=== PATIENT | male | born 1945 | race Two or more races ===

== ENCOUNTER 2016-12-08 16:57 | Observation (INO) | payer MEDICARE, OTHER ==
[2016-12-08] MEDS ORDERED: MORPHINE SULFATE 4 MG/ML SYRINGE IV STA (17:22)
[2016-12-08] MEDS ORDERED: ASPIRIN 81 MG PO STA (17:22)
[2016-12-08] MEDS ORDERED: NITROGLYCERIN OINT 1 INCH/GM PACKET TOPICAL STA (17:22)
--- NOTE | 2016-12-08 17:26 | ED ---
Chest Pain HPI - General Chief Complaint: Chest Pain Stated Complaint: Chest Pain Time Seen by Provider: 12/08/16 17:17 Source: family, EMS Mode of arrival: EMS Limitations: language barrier - History of Present Illness Initial Comments: This 71-year-old male presents with with the complaint of some chest pain. The states that it started approximately 1 hour prior to arrival. He does have a history of dementia as well as Parkinson's disease and is unable to give much history himself. Most of history is obtained per the . He apparently does have a remote history of a CABG. He also has had some angioplasty in the past. He did not have any diaphoresis or known shortness of breath. She denies any history of DVT or PE. There is no leg pain or swelling. No other complaints or modifying factors although history is somewhat limited. - Related Data Home Medications Medication Instructions Recorded Confirmed Amantadine HCl [Symmetrel] 100 mg PO TID 12/08/16 12/08/16 Aspirin Unknown Dose 1 tab PO DAILY 12/08/16 12/08/16 Carbidopa-Levodopa 25-100 mg 1 tab PO TID 12/08/16 12/08/16 [Sinemet 25-100] Donepezil [Aricept] 10 mg PO HS 12/08/16 12/08/16 Losartan/Hctz Unknown Dose 1 tab PO DAILY 12/08/16 12/08/16 OLANZapine [ZyPREXA] 10 mg PO HS 12/08/16 12/08/16 Vitamin E 1,000 unit PO DAILY 12/08/16 12/08/16 rOPINIRole HCL [Requip] 2 mg PO TID 12/08/16 12/08/16 Allergies Allergy/AdvReac Type Severity Reaction Status Date / Time No Known Allergies Allergy Verified 12/08/16 17:16 Review of Systems ROS Statement: Those systems with pertinent positive or pertinent negative responses have been documented in the HPI. ROS Other: All systems not noted in ROS Statement are negative. Past Medical History Past Medical History: Dementia, Liver Disease, Myocardial Infarction ([place]) Additional Past Medical History / Comment(s): kidney stones, parkinsons History of Any Multi-Drug Resistant Organisms: None Reported Past Surgical History: Coronary Bypass/CABG, Heart Catheterization With Stent Past Psychological History: No Psychological Hx Reported Smoking Status: Former smoker Past Alcohol Use History: None Reported Past Drug Use History: None Reported General Exam - General Exam Comments Initial Comments: GENERAL: The patient is well nourished and well hydrated. VITAL SIGNS: Heart rate, blood pressure, respiratory rate reviewed as recorded in nurse's notes. EYES: Pupils are round and reactive. Extraocular movements are intact. No conjunctival / lid redness or swelling. ENT: No external evidence of injury, swelling, or ecchymosis. Airway is patent. Throat is clear. NECK: Nontender. No swelling or evidence of injury. No subcutaneous emphysema. Trachea is midline. No thyroid mass. HEART: Regular rate and rhythm. Good peripheral pulses. No leg pain, swelling, or edema. LUNGS/CHEST: Breath sounds clear and equal bilaterally. No rales, rhonchi, or wheezes. No ecchymosis, subcutaneous emphysema, or tenderness. ABDOMEN: Abdomen soft without tenderness. No palpable masses or organomegaly. No peritoneal signs. No abdominal wall swelling or ecchymosis. EXTREMITIES: No extremity tenderness. Normal muscle tone and function. No thoracolumbar tenderness. NEUROLOGIC: Alert but not oriented. SKIN: No abrasions or ecchymosis is noted. No induration or masses noted. PSYCHIATRIC: Alert and mumbling. No apparent distress. Limitations: language barrier Course Vital Signs 12/08/16 12/08/16 12/08/16 17:06 17:29 18:43 Temperature 97.9 F Pulse Rate 75 71 Pulse Rate [ 86 [employer] [place] [employer] ] Respiratory 16 18 Rate Blood Pressure 159/98 132/72 O2 Sat by Pulse 98 100 Oximetry Chest Pain MDM - MDM The patient is seen and examined. All diagnostics are reviewed. The IV is started. He receives aspirin as well as some Nitropaste. He also receives 4 mg of morphine. The IV shows a normal sinus rhythm at a rate of 83. There is some T-wave inversions in lead 3 and aVF but this may be related to an an intraventricular conduction delay. The PA interval is 162, QRS is 102, and QTc interval is 401. The laboratory is reviewed and does show a slightly low blood glucose. The renal function is slightly off as well. The troponin is normal. The chest x-ray shows some possible mild congestive heart failure with postoperative changes. Long discussion is held with the family in regards to admission versus discharge. It was highly recommended that admission be placed for further cardiac evaluation and to rule out the possibility of acute coronary syndrome. The family would like to admit the patient for further workup and treatment. Case will be discussed with internal medicine shortly. Disposition Clinical Impression: Chest pain, Dementia, Parkinson disease, Unstable angina, CHF (congestive heart failure), Renal insufficiency, Hypoglycemia Disposition: ADMITTED IP TO THIS [facility] Condition: Fair Time of Disposition: 19:07 Decision Date: 12/08/16 Decision Time: 19:07
[2016-12-08 17:38] LABS: Basophils # (A) 0.1 k/uL (0-0.2); Basophils % (A) 1 %; CH 29.7; CHCM 32.6; Eosinophils # (A) 0.3 k/uL (0-0.7); Eosinophils % (A) 4 %; HCT 41.8 % (39.0-53.0); HDW 2.42; Luc % (Auto) 2; Lymphocytes # (A) 1.7 k/uL (1.0-4.8); Lymphocytes % (A) 19 %; MCH 30.7 pg (25.0-35.0); MCHC 33.5 g/dL (31.0-37.0); MCV 91.5 fL (80.0-100.0); Mean Platelet Volume 9.8; Monocytes # (A) 0.4 k/uL (0-1.0); Monocytes % (A) 4 %; Neutrophils # (A) 6.4 k/uL (1.3-7.7); Neutrophils % (A) 70 %; RBC 4.57 m/uL (4.30-5.90); RDW 12.3 % (11.5-15.5); WBC 9.2 k/uL (3.8-10.6); WBC (Perox) 9.53
[2016-12-08 17:52] LABS: ALT 15 U/L (21-72); AST 16 U/L (17-59); Alkaline Phosphatase 78 U/L (38-126); Anion Gap 10 mmol/L; Blood Urea Nitrogen 25 mg/dL (9-20); Calcium 10.4 mg/dL (8.4-10.2); Carbon Dioxide 26 mmol/L (22-30); Chloride 106 mmol/L (98-107); Glucose 65 mg/dL (74-99); Magnesium 2.2 mg/dL (1.6-2.3); Non-African American GFR(MDRD) 51 (>60 ml/min/1.73 sqM); Potassium 4.3 mmol/L (3.5-5.1); Sodium 142 mmol/L (137-145); Total Bilirubin 0.6 mg/dL (0.2-1.3); Total Protein 7.1 g/dL (6.3-8.2)
[2016-12-08 17:58] LABS: Creatine Kinase 56 U/L (55-170)
--- NOTE | 2016-12-08 18:00 | XR ---
EXAMINATION TYPE: XR chest 2V DATE OF EXAM: 12/08/2016 COMPARISON: NONE HISTORY: Chest pain TECHNIQUE: Frontal and lateral views of the chest are obtained. FINDINGS: Heart is enlarged. There is mild pulmonary congestion. There are chest leads. There are st ernal wires. Thoracic aorta is atheromatous. Bony thorax appears intact. There are sternal wires. IMPRESSION: There is evidence for mild heart failure. Atheromatous aorta.
[2016-12-08 18:11] LABS: Creatine Kinase MB 1.3 ng/mL (0.0-2.4); Troponin I <0.012 ng/mL (0.000-0.034)
[2016-12-08 18:17] LABS: Partial Thromboplastin Time 22.8 sec (22.0-30.0); Prothrombin Time 10.1 sec (9.0-12.0)
[2016-12-08] MEDS ORDERED: NITROGLYCERIN SL TABS 0.4 MG TAB SUBLINGUAL PRN (19:31)
[2016-12-08] MEDS ORDERED: HEPARIN SODIUM,PORCINE 5,000 UNIT/ML 1 ML VIAL IV PRN (19:31)
[2016-12-08] MEDS ORDERED: HEPARIN SODIUM,PORCINE 5,000 UNIT/ML 1 ML VIAL IV ONE (19:31)
[2016-12-08] MEDS ORDERED: FUROSEMIDE 10 MG/ML 4 ML VIAL IV STA (19:35)
[2016-12-08] MEDS ORDERED: HEPARIN SODIUM,PORCINE/D5W PMX 25,000 UNIT in DEXTROSE/WATER 1 500ML.BAG IV SCH (19:45)
[2016-12-08] MEDS ORDERED: OLANZapine 10 MG TAB PO SCH (21:00)
[2016-12-08] MEDS ORDERED: DONEPEZIL 10 MG TAB PO SCH (21:00)
[2016-12-08] MEDS ORDERED: AMANTADINE HCL 100 MG CAP PO SCH (22:00)
[2016-12-08] MEDS: FUROSEMIDE 10 MG/ML 2 ML VIAL IV SCH (22:37)
[2016-12-08] MEDS: CARBIDOPA-LEVODOPA 25-100 MG 1 EACH TAB PO SCH (22:38)
[2016-12-08 22:58] LABS: Glucose,Whole Blood 133 mg/dL (75-99)
[2016-12-08 23:06] VITALS: RESP 18; BMI 22.9
[2016-12-09] MEDS: INSULIN LISPRO (humaLOG) 300 UNIT/3 ML VIAL SQ SCH ×3 (00:14→15:48)
[2016-12-09 00:55] LABS: Creatine Kinase 48 U/L (55-170)
[2016-12-09 01:08] LABS: Troponin I <0.012 ng/mL (0.000-0.034)
[2016-12-09 01:45] LABS: Creatine Kinase MB 1.2 ng/mL (0.0-2.4)
[2016-12-09 02:57] LABS: Mean Platelet Volume 10.4
[2016-12-09] MEDS: NITROGLYCERIN OINT 1 INCH/GM PACKET TOPICAL SCH ×3 (06:05→13:16)
[2016-12-09 06:07] LABS: Glucose,Whole Blood 113 mg/dL (75-99)
[2016-12-09 06:36] LABS: Creatine Kinase 43 U/L (55-170)
[2016-12-09 06:47] LABS: Troponin I <0.012 ng/mL (0.000-0.034)
[2016-12-09 07:21] LABS: Calcium 10.4 mg/dL (8.4-10.2); Potassium 4.2 mmol/L (3.5-5.1); Total Bilirubin 0.9 mg/dL (0.2-1.3); Total Protein 7.5 g/dL (6.3-8.2)
[2016-12-09] MEDS ORDERED: INSULIN NPH/REG INSULIN 70/30 300 UNIT/3 ML VIAL SQ SCH (07:30)
[2016-12-09 08:16] LABS: Glucose,Whole Blood 92 mg/dL (75-99)
[2016-12-09] MEDS ORDERED: ASPIRIN 325 MG TAB PO SCH (09:00)
[2016-12-09] MEDS ORDERED: LOSARTAN PO SCH (09:00)
[2016-12-09] MEDS ORDERED: HYDROCHLOROTHIAZIDE PO SCH (09:00)
--- NOTE | 2016-12-09 10:29 | ECHOF ---
Referral Reason:cp MEASUREMENTS -------- HEIGHT: 180.3 cm WEIGHT: 62.1 kg BP: 116/69 IVSd: 1.4 cm (0.6 - 1.1) LVIDd: 3.7 cm (3.9 - 5.3) LVPWd: 1.2 cm (0.6 - 1.1) IVSs: 1.7 cm LVIDs: 2.9 cm LVPWs: 1.6 cm Ao Diam: 3.9 cm (2.0 - 3.7) AV Cusp: 2.2 cm (1.5 - 2.6) LA Diam: 3.0 cm (2.7 - 3.8) MV EXCURSION: 17.007 mm (> 18.000) MV EF SLOPE: 54 mm/s (70 - 150) EPSS: 1.3 cm MV E Hayden: 0.77 m/s MV DecT: 239 ms MV A Hayden: 0.89 m/s MV E/A Ratio: 0.87 RAP: 5.00 mmHg RVSP: 13.79 mmHg FINDINGS -------- Sinus rhythm. This was a technically difficult study with suboptimal views. Pt. is combative There is mild concentric left ventricular hypertrophy. Overall left ventricular systolic function is moderately impaired with, an EF between 35 - 40 %. Basal lateral LV wall motion is hypokinetic. Basal inferior LV wall motion is hypokinetic. Basal inferoseptal LV wall motion is hypokinetic. Mid lateral LV wall motion is hypokinetic. Mid inferior LV wall motion is hypokinetic. The right ventricle is normal in size and function. The left atrium is normal in size. The right atrium is normal in size. The aortic valve is trileaflet, and appears structurally normal. No aortic stenosis or regurgitation. The mitral valve leaflets are mildly thickened. Mild mitral regurgitation is present. Mild tricuspid regurgitation present. The right ventricular systolic pressure, as measured by Doppler, is 13.79mmHg. There is no pulmonic regurgitation present. The aortic root is mildy dilated. There is no pericardial effusion. CONCLUSIONS -------- 1. Sinus rhythm. 2. Mid inferior LV wall motion is hypokinetic. 3. The left atrium is normal in size. 4. The aortic valve is trileaflet, and appears structurally normal. No aortic stenosis or regurgitation. 5. Mild mitral regurgitation is present. 6. Mild tricuspid regurgitation present. 7. There is no pulmonic regurgitation present. 8. The aortic root is mildy dilated. 9. There is no pericardial effusion. 10. This was a technically difficult study with suboptimal views. 11. Pt. is combative 12. There is mild concentric left ventricular hypertrophy. 13. Overall left ventricular systolic function is moderately impaired with, an EF between 35 - 40 %. 14. Basal lateral LV wall motion is hypokinetic. 15. Basal inferior LV wall motion is hypokinetic. 16. Basal inferoseptal LV wall motion is hypokinetic. 17. Mid lateral LV wall motion is hypokinetic. PARACHUTIST/COMBATANT DIVER QUALIFIED: Adela Kwon RDCS
[2016-12-09 11:22] VITALS: BP 108/64; PULSE 75; TEMP 97.6
--- NOTE | 2016-12-09 11:56 | HP ---
Chief complaint is 71-year-old [place] male with some chest pain. HISTORY OF PRESENT ILLNESS: One hour prior to arrival, he developed some chest pain. He has history of dementia, Parkinson's disorder in the past. He has a remote history of CABG surgery. He has a history of angioplasty also. He came in across the bridge from [place] where he had some chest pain, was brought to the hospital immediately. He was admitted to rule out myocardial infarction. HOME MEDICATIONS: 1. Symmetrel 100 t.i.d. 2. Aspirin daily. 3. Sinemet 25-100 t.i.d. or ( ) daily. 4. Losartan-hydrochlorothiazide 100-12.5 daily. 5. Zyprexa 10 daily. 6. Vitamin E 1000 daily. 7. Requip 2 mg t.i.d. ALLERGIES: No known drug allergies. REVIEW OF SYSTEMS: A 14-point review of systems negative except for as mentioned by HPI. Most review of systems from his as he just mumbles and does not have good Fijian. PAST MEDICAL HISTORY: Dementia, liver disease, myocardial infarction, renal stenosis, Parkinson's disease, CABG surgery, heart catheterization with stent. SOCIAL HISTORY: Former smoker, no alcohol, no illicit drugs. PHYSICAL EXAM; Thin, in no acute distress. CARDIOVASCULAR: S1, S2. LUNGS: Transmitted upper airway sound. GI: Soft, nontender. HEMATOLOGIC: Negative Homans. VASCULAR: Normal dorsal pedis posterior tibial pulses. OPHTHALMOLOGIC: Pupils equal, round and reactive to light and accommodation. NEUROLOGIC: Alert and oriented x3. SKIN: No rash, excoriations, bruising. Pulse is 71 to 75, respiratory 16 to 18, blood pressure 130s to 150s/70s to 90s , O2 is 92% to 98% on room air. Labs are reviewed. EKG is reviewed. Chest x-ray shows mild CHF. ASSESSMENT: 1. Chest pain with atypical dementia. 2. Parkinson's disease. 3. ( ). 4. Congestive heart failure. 5. Renal insufficiency, Stage III. 6. Hyperglycemia. Cardiology is consulted. Rehydration and recheck electrolytes in the morning. Home medicine will be continued. [facility]
[2016-12-09] MEDS ORDERED: VITAMIN E (DL,TOCOPHERYL ACET) 400 UNIT CAP PO SCH (12:00)
[2016-12-09 12:06] LABS: Glucose,Whole Blood 157 mg/dL (75-99)
[2016-12-09] MEDS: CARBIDOPA-LEVODOPA 25-100 MG 1 EACH TAB PO SCH (14:49)
[2016-12-09] MEDS: FUROSEMIDE 10 MG/ML 2 ML VIAL IV SCH (14:49)
[2016-12-09 15:06] LABS: Glucose,Whole Blood 146 mg/dL (75-99)
[2016-12-09] MEDS ORDERED: METOPROLOL TARTRATE 12.5 MG TAB PO SCH (21:00)
[2016-12-09] MEDS ORDERED: ATORVASTATIN 20 MG TAB PO SCH (21:00)
--- NOTE | 2016-12-09 22:21 | CONS ---
This is a 71-year-old gentleman with a long-standing history of parkinsonism, CAD, previous bypass surgery performed more than 20 years ago, who is a resident of [place]. He was brought in by his family. Apparently he lives in [place] and had his surgery in [place]. He was brought in mainly because of some chest pain. Patient has dementia, parkinsonism, does not communicate. I had a lot of difficultly obtaining any meaningful history from him. However, he is pain-free. His troponins are normal. He is resting comfortably without symptoms, but he seems to not respond to questions and has a combination of dementia and parkinson's disease. This makes it very difficult to communicate. He does not seem to be in any distress. MEDICATIONS: 1. Sinemet 25/100. 2. Aspirin. 3. Symmetrel. 4. Vitamin supplements. ALLERGIES: NONE. REVIEW OF SYSTEMS: Unavailable. On examination, blood pressure is 110/70. Pulse rate is 70 per minute, regular. HEENT: Unremarkable. Fundus was not examined by me. Neck is supple. There is JVD of 1 cm. No carotid bruit. Heart exam reveals S1, S2 with a short systolic murmur at the base of the heart , preserved second heart sound. Lungs reveal diminished air entry. Abdomen is soft, non-tender. Lower extremities reveal diminished pulses. Central nervous system reveals generalized weakness, some spasticity, but I did not do a detailed examination. EKG revealed sinus mechanism with PACs, old inferior IA, poor R-wave progression , non-specific ST-T changes. Laboratory data revealed that troponin levels are normal. His D-dimer was borderline. Hemoglobin level was normal. Renal function reveals mild abnormalities suggestive of chronic kidney disease. IMPRESSION: 1. Atypical chest pain in a patient with known coronary artery disease. 2. Hypertension. 3. Parkinson's disease. 4. Dementia. RECOMMENDATIONS: I am recommending no intervention necessary from a cardiac standpoint. We will perform an echocardiogram. I will start him on a small dose of Lopressor and a statin agent. Patient can be discharged and followed up with his primary care physician. No intervention other than echocardiogram to be performed today. I spoke to the patient and family at length and suggested that he should also have a neurology assessment because of his parkinsonism. Thank you very much for the consult. [place]
[2016-12-10] MEDS ORDERED: ASPIRIN 81 MG PO SCH (09:00)
--- NOTE | 2017-01-20 06:53 | DS ---
DISCHARGE MEDICATIONS: 1. Sinemet 25/100 t.i.d. 2. Aricept 10 mg daily. 3. Vitamin E 1000 daily. 4. Symmetrel 100 mg t.i.d. 5. Requip 2 mg t.i.d. 6. Zyprexa 10 mg daily. 7. Losartan hydrochlorothiazide 1 daily. 8. Aspirin 81 daily. CONDITION: Stable. PROGNOSIS: Guarded. Ambulate as tolerated. DISCHARGE DIAGNOSES: 1. Parkinson's. 2. Coronary artery disease. 3. Atypical chest pain with known history of coronary artery disease. 4. Hypertension. 5. Dementia. Cardiology saw the patient while in the hospital, did an echo. Started on Lopressor and statins. He can be discharged home and follow up as an outpatient. Cleared by Cardiology for discharge. Stable condition. [facility]TDD
== END 2016-12-09 15:42 | disposition home or self-care (01) ==
LOC: EC 16:57 → 6SEL 19:31 → 3OBS 12-09 07:49
PROVIDERS: ADMIT Family Medicine; ATTEND Family Medicine
DX: R07.89 Other chest pain (principal); F03.90 Unspecified dementia, unspecified severity, without behavioral disturbance, psychotic disturbance, mood disturbance, and anxiety; G20 Parkinson's disease; I11.0 Hypertensive heart disease with heart failure; I50.9 Heart failure, unspecified; I25.10 Atherosclerotic heart disease of native coronary artery without angina pectoris; N28.9 Disorder of kidney and ureter, unspecified; R73.9 Hyperglycemia, unspecified; I25.2 Old myocardial infarction; Z79.82 Long term (current) use of aspirin; Z79.899 Other long term (current) drug therapy; Z87.891 Personal history of nicotine dependence; Z95.1 Presence of aortocoronary bypass graft; Z95.5 Presence of coronary angioplasty implant and graft; Z87.442 Personal history of urinary calculi
CPT/HCPCS: 96366 ×2; 96375 ×2; 96376; 96365; 99285; 36415; 93005; 93306; 85379; 83880; 80061; 80053 ×2; 82550 ×2; 82553 ×2; 83735; 84484 ×2; 85025; 85049; 85610; 85730 ×2; 71020; G0378 ×3; J2270; J1644 ×2; J1940 ×2